=== PATIENT | male | born 1985 | race Caucasian/White ===

== ENCOUNTER 2016-11-27 08:47 | Emergency (ER) | payer SELFPAY | END 2016-11-27 11:04 | disposition home or self-care (01) | LOC: D.ER 08:47 | DX: J06.9 Acute upper respiratory infection, unspecified (principal); J45.909 Unspecified asthma, uncomplicated ==

== ENCOUNTER → 2017-01-15 | Emergency (ER) | payer SELFPAY | END | disposition home or self-care (01) | LOC: D.ER 12:44 | DX: S05.01XA Injury of conjunctiva and corneal abrasion without foreign body, right eye, initial encounter (principal); X58.XXXA Exposure to other specified factors, initial encounter; Y93.89 Activity, other specified; Y92.89 Other specified places as the place of occurrence of the external cause; S63.602A Unspecified sprain of left thumb, initial encounter ==

== ENCOUNTER 2017-12-20 22:27 | Emergency (ER) | payer MEDICAID | END 2017-12-20 23:54 | disposition home or self-care (01) | LOC: D.ER 22:27 | DX: M79.642 Pain in left hand (principal); M79.641 Pain in right hand; R22.33 Localized swelling, mass and lump, upper limb, bilateral; L03.113 Cellulitis of right upper limb; J45.909 Unspecified asthma, uncomplicated ==

== ENCOUNTER 2017-12-23 18:19 | Emergency (ER) | payer MEDICAID | END 2017-12-23 20:33 | disposition home or self-care (01) | LOC: D.ER 18:19 | DX: S61.412A Laceration without foreign body of left hand, initial encounter (principal); W25.XXXA Contact with sharp glass, initial encounter; Y93.89 Activity, other specified; Y92.89 Other specified places as the place of occurrence of the external cause; F17.200 Nicotine dependence, unspecified, uncomplicated ==

== ENCOUNTER → 2018-01-05 09:24 | Emergency (ER) | payer MEDICAID | END | disposition home or self-care (01) | LOC: D.ER 09:24 | DX: S61.412D Laceration without foreign body of left hand, subsequent encounter (principal); X58.XXXD Exposure to other specified factors, subsequent encounter; Z48.02 Encounter for removal of sutures; J45.909 Unspecified asthma, uncomplicated ==

== ENCOUNTER 2018-02-26 13:42 | Emergency (ER) | payer MEDICAID ==
[2018-02-26 14:42] LABS: APPEARANCE CLEAR (CLEAR); COLOR YELLOW (YELLOW); NITRITE NEGATIVE (NEGATIVE); SPECIFIC GRAVITY 1.015 (1.005-1.020)
[2018-02-26 14:43] LABS: BILIRUBIN NEGATIVE (NEGATIVE); GLUCOSE NEGATIVE (NEGATIVE); KETONE NEGATIVE (NEGATIVE); PROTEIN NEGATIVE (NEGATIVE); UROBILINOGEN NORMAL (NORMAL)
[2018-02-26 14:44] LABS: RED CELLS - URINE 0-5 /hpf (0-5)
[2018-02-26 14:45] LABS: BACTERIA FEW /hpf (NONE SEEN)
[2018-02-26 14:55] LABS: BASOPHILS 0.8 % (0-2); EOSINOPHILS 4.3 % (0-7); HEMATOCRIT 39.6 % (42.0-54.0); LYMPHOCYTES 32.8 % (15-50); MCH 28.3 pg (26.0-34.0); MCHC 32.8 g/dL (31.0-37.0); MCV 86.3 fL (80.0-100.0); MEAN PLATELET VOLUME 9.9 fL (7.4-10.4); MONOCYTES 11.5 % (2-11); NEUTROPHILS 50.6 % (40-80); PLATELET COUNT 142 10x3/uL (130-400); RBC 4.59 10x6/uL (4.20-6.10); RDW 13.2 % (11.5-14.5)
[2018-02-26 15:12] LABS: ALKALINE PHOSPHATASE 52 U/L (46-116); ALT (SGPT) 20 U/L (10-68); AMYLASE - SERUM 105 U/L (25-115); BILIRUBIN - TOTAL 0.31 mg/dL (0.2-1.3); CALC OSMOLALITY 282 mosm/kg (275-300); CALCIUM 9.1 mg/dL (8.5-10.1); CARBON DIOXIDE 34.4 mmol/L (21.0-32.0); CHLORIDE - SERUM 105 mmol/L (98-107); CREATININE - SERUM 1.1 mg/dL (0.6-1.3); GLUCOSE 79 mg/dL (74-106); LIPASE 101 U/L (73-393); POTASSIUM - SERUM 3.7 mmol/L (3.5-5.1); PROTEIN - SERUM 7.5 g/dL (6.4-8.2); SODIUM 142 mmol/L (136-145); UREA NITROGEN 14 mg/dL (7-18); eGFR NON AFRICAN AMERICAN 82 mL/min (90-120)
== END 2018-02-26 17:50 | disposition home or self-care (01) ==
LOC: D.ER 13:42
PROVIDERS: Family Medicine; Physician Assistant
DX: R10.30 Lower abdominal pain, unspecified (principal); K62.89 Other specified diseases of anus and rectum; F17.200 Nicotine dependence, unspecified, uncomplicated

== ENCOUNTER 2018-07-16 20:58 | Emergency (ER) | payer MEDICAID ==
[~2018-07-16] VITALS: Ht 185.4 cm; Wt 62.7 kg
[2018-07-16 21:13] VITALS: Ht 185.4 cm; Wt 62.7 kg
[2018-07-16] MEDS ORDERED: TORADOL10 MG PO (22:36)
[2018-07-16 22:49] VITALS: BP 135/80
== END 2018-07-16 22:49 | disposition home or self-care (01) ==
LOC: D.ER 20:58
DX: M25.512 Pain in left shoulder (principal); M35.7 Hypermobility syndrome; F17.200 Nicotine dependence, unspecified, uncomplicated

== ENCOUNTER 2019-12-03 15:28 | Inpatient (IN) | payer MEDICAID ==
[~2019-12-03] VITALS: Ht 185.4 cm; Wt 63.6 kg
[~2019-12-03 15:28] MED LIST: TORADOL10 MG PO
--- NOTE | 2019-12-03 16:10 | NUR ---
NASAL SWAB OBTAINED, LABELED AT BS AND SENT TO LAB. PT REFUSED THROAT SWAB, DR PRUITT NOTIFIED
[2019-12-03 16:12] VITALS: BP 101/59
[2019-12-03 16:17] LABS: BASOPHILS 0.1 % (0-2); EOSINOPHILS 0.5 % (0-7); HEMATOCRIT 38.4 % (42.0-54.0); HEMOGLOBIN 12.9 g/dL (13.5-17.5); IMMATURE GRANULOCYTES 0.1 % (0-5); LYMPHOCYTES 13.6 % (15-50); MCH 28.5 pg (26.0-34.0); MCHC 33.6 g/dL (31.0-37.0); MCV 84.8 fL (80.0-100.0); MEAN PLATELET VOLUME 9.4 fL (7.4-10.4); MONOCYTES 16.5 % (2-11); NEUTROPHILS 69.2 % (40-80); RBC 4.53 10x6/uL (4.20-6.10); RDW 12.8 % (11.5-14.5); WBC 7.4 10x3/uL (4.8-10.8)
[2019-12-03 16:19] LABS: PLATELET COUNT 286 10x3/uL (130-400)
[2019-12-03 16:20] LABS: CALC OSMOLALITY 279 mosm/kg (275-300); CALCIUM 9.7 mg/dL (8.5-10.1); CARBON DIOXIDE 28.3 mmol/L (21.0-32.0); CHLORIDE - SERUM 102 mmol/L (98-107); CREATININE - SERUM 1.1 mg/dL (0.6-1.3); GLUCOSE 92 mg/dL (74-106); POTASSIUM - SERUM 3.1 mmol/L (3.5-5.1); SODIUM 140 mmol/L (136-145); UREA NITROGEN 14 mg/dL (7-18); eGFR NON AFRICAN AMERICAN 81 mL/min (90-120)
--- NOTE | 2019-12-03 16:47 | NUR ---
URINE SPECIMEN SENT TO LAB AT 17:15
[2019-12-03 16:48] LABS: ALBUMIN 3.8 g/dL (3.4-5.0); ALKALINE PHOSPHATASE 47 U/L (30-120); ALT (SGPT) 24 U/L (10-68); BILIRUBIN - TOTAL 0.72 mg/dL (0.2-1.3); CKMB 0.4 U/L (0.0-3.6); CREATINE KINASE 228 UL (21-232); PROTEIN - SERUM 8.1 g/dL (6.4-8.2); TROPONIN-I < 0.017 ng/mL (0.000-0.060)
--- NOTE | 2019-12-03 17:06 | NUR ---
CRITICAL LAB: LACTIC ACID 2.4 DR PRUITT NOTIFIED
[2019-12-03 17:09] LABS: BILIRUBIN NEGATIVE (NEGATIVE); GLUCOSE NEGATIVE (NEGATIVE); KETONE NEGATIVE (NEGATIVE); NITRITE NEGATIVE (NEGATIVE); UROBILINOGEN NORMAL (NORMAL)
[2019-12-03 17:22] LABS: APTT 31.1 SECONDS (22.8-39.4); INR 1.07 (0.85-1.17); PROTIME 13.8 SECONDS (11.6-15.0)
[2019-12-03 17:25] LABS: D-DIMER-QUANTITATIVE < 0.27 ug/mLFEU (0.20-0.54)
[2019-12-03 18:30] VITALS: BP 117/60
--- NOTE | 2019-12-03 19:30 | NUR ---
RT AT BEDSIDE TO GIVE BREATHING TREATMENT.
[2019-12-03 20:00] VITALS: BP 135/50
[2019-12-03] MEDS ORDERED: PROMETHAZINE W473 ML PO (20:20)
--- NOTE | 2019-12-03 20:20 | NUR ---
PATIENT ARRIVED VIA WHEELCHAIR ACCOMPANIED BY HOSPITAL STAFF. NO S/S OF ACUTE DISTRESS. NO C/O AT THIS TIME. PATIENT ON PHONE WITH SIGNIFICANT OTHER. PATIENT HAS LEFT FOREARM IV SALINE LOC. IV IS PATENT WITHOUT REDNESS, SWELLING, OR TENDERNESS. PATIENT IS ALERT AND ORIENTATED. UP ADLIB. CALL LIGHT IN PLACE. WILL CONTINUE TO MONITOR.
[2019-12-03 20:36] VITALS: Ht 185.4 cm; Wt 63.6 kg
[2019-12-04] VITALS: BP 118/53
--- NOTE | 2019-12-04 01:49 | NUR ---
I have reviewed this patient and I concur with the Shift Assessment completed by the Licensed Practical Nurse today this shift.
[2019-12-04 04:00] VITALS: BP 117/53
[2019-12-04 05:37] LABS: BASOPHILS 0 % (0-2); EOSINOPHILS 0 % (0-7); HEMATOCRIT 34.2 % (42.0-54.0); HEMOGLOBIN 11.3 g/dL (13.5-17.5); IMMATURE GRANULOCYTES 0.3 % (0-5); LYMPHOCYTES 5.5 % (15-50); MCH 28.1 pg (26.0-34.0); MCV 85.1 fL (80.0-100.0); MEAN PLATELET VOLUME 9.5 fL (7.4-10.4); MONOCYTES 1.9 % (2-11); NEUTROPHILS 92.3 % (40-80); PLATELET COUNT 290 10x3/uL (130-400); RBC 4.02 10x6/uL (4.20-6.10); RDW 13.1 % (11.5-14.5); WBC 6.9 10x3/uL (4.8-10.8)
[2019-12-04 06:06] LABS: ALBUMIN 3.5 g/dL (3.4-5.0); ANION GAP 13.9 mmol/L (8-16); BILIRUBIN - TOTAL 0.59 mg/dL (0.2-1.3); CARBON DIOXIDE 25.2 mmol/L (21.0-32.0); CREATININE - SERUM 1.2 mg/dL (0.6-1.3); MAGNESIUM - SERUM 1.7 mg/dL (1.8-2.4); PHOSPHOROUS 2.4 mg/dL (2.5-4.9); POTASSIUM - SERUM 4.1 mmol/L (3.5-5.1); PROTEIN - SERUM 7.7 g/dL (6.4-8.2)
[2019-12-04 07:58] VITALS: BP 105/53
[2019-12-04 12:24] VITALS: BP 108/50
[2019-12-04] MEDS ORDERED: ALBUTEROL SULF8.5 GM INH (13:55)
[2019-12-04] MEDS ORDERED: PREDNISONE10 MG PO (13:55)
--- NOTE | 2019-12-04 15:42 | NUR ---
IV DISCONTINUED AND VERBALIZED UNDERSTANDING OF DISCHARGE INSTRUCTIONS. STABLE AT TIME OF DEPARTURE.
--- NOTE | 2019-12-08 06:53 | MORECARE ---
CASE MANAGEMENT DISCHARGE SUMMARY PATIENT: ASHLEY REYNOSO JR UNIT: [id number] ADM DATE: 12/03/19 AGE: 33 : 83 SEX: M ROOM/BED: D.2238 AUTHOR: DEEJAY DUFFY PHYSICIAN: REFERRING PHYSICIAN: MUKUND SOTO MD DATE OF SERVICE: 12/08/19 Discharge Plan Patient Name: ASHLEY REYNOSO [facility] : 1985 Planned Disposition: Anticipated Discharge Date: Discharge Date: 12/04/2019 Expected LOS: 0 Initial Reviewer: [email or web address] Initial Review Date: 12/08/2019 Generated: 12/08/19 7:53 am Patient Name: ASHLEY REYNOSO Page [id number] at 0653 All edits/amendments must be made on the electronic document DICTATION DATE: 12/08/1954 DEBRIDGING MACHINE OPERATOR: DAVID 12/08/19 0653 RPT#: [id number] DC DATE:12/04/19 STATUS: DIS IN [facility] [address] [facility] [place] [address] END OF REPORT
== END 2019-12-04 15:42 | disposition home or self-care (01) | DRG 189 ==
LOC: D.ER 15:28 → D.MS 17:59 → D.ER 20:02 → D.MS 12-04 04:46
PROVIDERS: Family Medicine; ADMIT Emergency Medicine; ATTEND Emergency Medicine
DX: J96.21 Acute and chronic respiratory failure with hypoxia (principal); J45.901 Unspecified asthma with (acute) exacerbation; F17.203 Nicotine dependence unspecified, with withdrawal; E87.6 Hypokalemia; D64.9 Anemia, unspecified